=== PATIENT | female | born 1965 | race Native Hawaiian/Other Pacific Islander ===

== ENCOUNTER 2018-09-12 10:40 | Outpatient (CLI) | payer BC ==
[~2018-09-12 10:40] MED LIST: ATOMOXETINE PO; CIPRO500 MG OR; ESTERIFIED ESTROGENS PO; MOBIC15 MG PO
== END 2018-09-12 21:15 | disposition home or self-care (01) ==
LOC: RESP 10:40
DX: R07.89 Other chest pain (principal)
CPT/HCPCS: 93005